=== PATIENT | female | born 1975 | race Hispanic/Latino ===

== ENCOUNTER 2023-03-23 08:08 | Observation (INO) | payer OTHER ==
[~2023-03-23] VITALS: Ht 152.4 cm; Wt 58.1 kg
[2023-03-23 08:33] LABS: BASOPHILS % 0.9 % (0.0-1.0); EOSINOPHILS # (AUTO) 0.1 (0.0-0.4); EOSINOPHILS % 3.2 % (0.0-6.0); LYMPHOCYTES % 45.2 % (18.0-39.1); MEAN CORPUSCULAR HGB CONC 24.8 g/dL (31-35); MEAN CORPUSCULAR VOLUME 60.7 fL (81-99); MONOCYTES # (AUTO) 0.4 (0.2-0.8); NEUTROPHILS # (AUTO) 1.8 (2.1-6.9); NEUTROPHILS % 42.2 % (38.7-80.0); PLATELET COUNT 389 x10e3/uL (140-360); RED BLOOD COUNT 3.59 x10e6/uL (3.6-5.1); RED CELL DISTRIBUTION WIDTH 20.7 % (11.7-14.4)
[2023-03-23 08:40] LABS: HEMATOCRIT 21.8 % (34.2-44.1)
[2023-03-23 08:41] LABS: HEMOGLOBIN 5.4 g/dL (12.0-16.0)
[2023-03-23] MEDS ORDERED: SODIUM CHLORIDE 0.9% 250ML 250 ML IV ONE (08:45)
[2023-03-23 08:50] LABS: ALBUMIN/GLOBULIN RATIO 1.1 (0.8-2.0); ANION GAP 10.7 mmol/L (8-16); CALCIUM 8.6 mg/dL (8.4-10.2); CREATININE, SERUM 0.55 mg/dL (0.57-1.11); POTASSIUM 3.7 mmol/L (3.5-5.1)
[2023-03-23] MEDS ORDERED: SODIUM CHLORIDE FLUSH 10 ML SYR INJ PRN (09:00)
[2023-03-23] MEDS ORDERED: ONDANSETRON HCL INJ 2MG/ML 2ML 2 MG/ML VIAL IV PRN (09:00)
[2023-03-23 10:11] LABS: ANISOCYTOSIS MODERATE; HYPOCHROMASIA MODERATE; MICROCYTOSIS MODERATE; PLATELET ESTIMATE ADEQUATE; PLATELET MORPHOLOGY COMMENT FEW LARGE; POLYCHROMASIA FEW; RBC MORPHOLOGY COMMENT ABNORMAL
[2023-03-23 11:27] LABS: % IRON SATURATION 3 % (15-50); IRON 14 ug/dL (50-170); TOTAL IRON BINDING CAPACITY 500 ug/dL (261-478); TRANSFERRIN 357 mg/dL (180-382)
[2023-03-23 12:17] LABS: FERRITIN < 1.00 ng/mL (4.63-204.00)
[2023-03-23] MEDS ORDERED: SODIUM CHLORIDE 0.9% 250ML 250 ML ONE (15:35)
[2023-03-23 15:42] VITALS: BP 116/67; PULSE 62; RESP 18; TEMP 98.3; O2SAT 100
[2023-03-23 16:14] VITALS: BP 116/67; PULSE 62; RESP 18; TEMP 98.3; O2SAT 100
[2023-03-23 16:25] VITALS: BP 116/67; PULSE 62; RESP 18; TEMP 98.3; O2SAT 100
[2023-03-23] MEDS ORDERED: CYANOCOBALAMIN 1,000 MCG TAB PO ONE (18:45)
[2023-03-23 20:00] VITALS: BP 122/76; PULSE 58; RESP 16; TEMP 98.3; O2SAT 100
[2023-03-23] MEDS ORDERED: IRON SUCROSE 100 MG in SODIUM CHLORIDE 0.9% 100 ML IV SCH (20:00)
[2023-03-24 00:37] VITALS: BP 114/67; PULSE 63; RESP 17; TEMP 98.5; O2SAT 99
[2023-03-24 04:52] VITALS: BP 108/64; PULSE 61; RESP 16; TEMP 98.3; O2SAT 100
[2023-03-24 07:47] LABS: BASOPHILS % 0.6 % (0.0-1.0); EOSINOPHILS # (AUTO) 0.2 (0.0-0.4); EOSINOPHILS % 4.9 % (0.0-6.0); HEMATOCRIT 27.9 % (34.2-44.1); HEMOGLOBIN 8.1 g/dL (12.0-16.0); LYMPHOCYTES # (AUTO) 2.1 (1.0-3.2); LYMPHOCYTES % 42.3 % (18.0-39.1); MEAN CORPUSCULAR HEMOGLOBIN 19.8 pg (28-32); MEAN CORPUSCULAR VOLUME 68.2 fL (81-99); MONOCYTES # (AUTO) 0.4 (0.2-0.8); MONOCYTES % 8.3 % (4.4-11.3); NEUTROPHILS # (AUTO) 2.2 (2.1-6.9); NEUTROPHILS % 43.9 % (38.7-80.0); PLATELET COUNT 315 x10e3/uL (140-360); RED BLOOD COUNT 4.09 x10e6/uL (3.6-5.1); RED CELL DISTRIBUTION WIDTH 27.9 % (11.7-14.4)
[2023-03-24 08:14] LABS: ALBUMIN 3.4 g/dL (3.5-5.0); ALBUMIN/GLOBULIN RATIO 1.1 (0.8-2.0); ANION GAP 9.8 mmol/L (8-16); CALCIUM 8.2 mg/dL (8.4-10.2); CREATININE, SERUM 0.54 mg/dL (0.57-1.11); POTASSIUM 3.8 mmol/L (3.5-5.1)
[2023-03-24 09:00] VITALS: BP 132/69; PULSE 60; RESP 18; TEMP 98.3; O2SAT 99
[2023-03-24] MEDS ORDERED: CYANOCOBALAMIN 1,000 MCG TAB PO SCH (09:00)
[2023-03-24 11:05] LABS: BAND NEUTROPHILS % (MANUAL) 2 %; EOSINOPHILS % (MANUAL) 1 % (0-7); LYMPHOCYTES % (MANUAL) 46 % (19-48); MONOCYTES % (MANUAL) 5 % (3.4-9.0); NEUTROPHILS % (MANUAL) 43 % (40-74); NUCLEATED RED BLOOD CELLS 2
[2023-03-24 11:06] LABS: HYPOCHROMASIA MODERATE; PLATELET ESTIMATE ADEQUATE; PLATELET MORPHOLOGY COMMENT FEW LARGE; POLYCHROMASIA FEW; RBC MORPHOLOGY COMMENT ABNORMAL
[2023-03-24 11:07] LABS: MICROCYTOSIS MODE; POIKILOCYTOSIS SLIGHT
[2023-03-24 11:08] LABS: ANISOCYTOSIS MODE
[2023-03-24 13:01] VITALS: BP 136/78; PULSE 56; RESP 18; TEMP 98.6; O2SAT 98
== END 2023-03-24 16:11 | disposition home or self-care (01) ==
LOC: ER 08:15 → ERHOLD 08:49 → MED/SURG2 14:55
PROVIDERS: ADMIT Internal Medicine; ATTEND Internal Medicine
DX: D50.9 Iron deficiency anemia, unspecified (principal); E53.8 Deficiency of other specified B group vitamins; D61.818 Other pancytopenia; Z20.822 Contact with and (suspected) exposure to COVID-19
CPT/HCPCS: 0223U; 36415 ×2; 36430; 80053 ×2; 82607; 82728; 82746; 82948; 83540; 84466; 85025 ×2; 86850; 86900; 86920; 99284; G0378 ×2; J1756 ×2; J7050 ×3; P9016